=== PATIENT | female | born 2000 | race Caucasian/White ===

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

== ENCOUNTER 2019-05-25 14:26 | Emergency (ER) | payer BC ==
[2019-05-25 14:41] VITALS: BP 118/61; PULSE 78
--- NOTE | 2019-05-25 14:48 | EDM.PDOC ---
ED HPI GENERAL MEDICAL PROBLEM - General Chief Complaint: Upper Extremity Injury/Pain Stated Complaint: INJURED LT ARM Time Seen by Provider: 05/25/19 14:35 Source of Information: Reports: Patient History Limitations: Reports: No Limitations - History of Present Illness INITIAL COMMENTS - FREE TEXT/NARRATIVE: HISTORY AND PHYSICAL: History of present illness: Patient is a 19-year-old female who presents to the emergency room with complaints of left wrist pain. She states that she was doing some box jumps while she was working out and had fallen on an outstretched hand. She denies hitting her head or having any loss of consciousness. She denies any other extremity involvement. She is able to flex and extend and grasp although this does cause pain. Offers no systemic complaints. Review of systems: As per history of present illness and below otherwise all systems reviewed and negative. Past medical history: As per history of present illness and as reviewed below otherwise noncontributory. Surgical history: As per history of present illness and as reviewed below otherwise noncontributory. Social history: See social history for further information Family history: As per history of present illness and as reviewed below otherwise noncontributory. Physical exam: General: Well developed and well nourished 19 year old female. A&O x 3. Nontoxic appearing and in no acute distress. HEENT: Atraumatic, normocephalic, pupils equal and reactive bilaterally, negative for conjunctival pallor or scleral icterus, mucous membranes moist, trachea midline. No drooling or trismus noted. No meningeal signs. No hot potato voice noted. Lungs: Clear to auscultation, breath sounds equal bilaterally, chest nontender. Heart: S1S2, regular rate and rhythm without overt murmur Abdomen: Soft, nondistended, nontender. Negative for masses or hepatosplenomegaly. Negative for costovertebral tenderness. Skin: Intact, warm, dry. No lesions or rashes noted. Extremities: Strong radial pulse, cap refill less than 3 seconds. Pain to mid hand near the 1st and 2nd digit web space into forearm. No snuff box tenderness. Otherwise moves all extremities per self without difficulty or deficits. Neurovascular unremarkable. Neuro: Awake, alert, oriented. Cranial nerves II through XII unremarkable. Cerebellum unremarkable. Motor and sensory unremarkable throughout. Exam nonfocal. Notes: X-ray shows no acute findings. She declined Toradol IM. We will give her a thumb spica wrist splint. We discussed the need to follow-up with the orthopedic provider for reevaluation if she continues to have pain. Supportive care measures were reviewed and discussed. Voices understanding and is agreeable to plan of care. Denies any further questions or concerns at this time. Diagnostics: X-ray left wrist Therapeutics: Thumb spicca wrist splint Prescription: Diclofenac Impression: Left wrist injury Plan: 1. Rest, ice, elevate the affected extremity. Please wear the splint as directed. 2. Tylenol and/or Ibuprofen as needed for pain management. 3. Follow up with the Orthopedic provider as we discussed. Return to the ED as needed and as discussed. Definitive disposition and diagnosis as appropriate pending reevaluation and review of above. I did some diclofenac left wrist Pain Score (Numeric/FACES): 8 - Related Data Allergies Allergy/AdvReac Type Severity Reaction Status Date / Time No Known Allergies Allergy Verified 06/06/18 23:22 Home Meds: Home Meds Diclofenac Sodium [Voltaren] 75 mg PO BIDMEALS PRN #30 tab.cr 05/25/19 [Rx] Past Medical History - Past Health History Medical/Surgical History: Denies Medical/Surgical History HEENT History: Reports: None Cardiovascular History: Reports: None Respiratory History: Reports: Asthma Gastrointestinal History: Reports: None Genitourinary History: Reports: None ENGINEERING MATHEMATICIAN History: Reports: None Musculoskeletal History: Reports: None Neurological History: Reports: None Psychiatric History: Reports: None Endocrine/Metabolic History: Reports: None Hematologic History: Reports: None Oncologic (Cancer) History: Reports: None Dermatologic History: Reports: None - Infectious Disease History Infectious Disease History: Reports: Chicken Pox - Past Surgical History Head Surgeries/Procedures: Reports: None HEENT Surgical History: Reports: Adenoidectomy, Tonsillectomy Social & Family History - Family History Family Medical History: Noncontributory - Tobacco Use Smoking Status *Q: Never Smoker - Caffeine Use Caffeine Use: Reports: None - Recreational Drug Use Recreational Drug Use: No Review of Systems - Review of Systems Review Of Systems: Comprehensive ROS is negative, except as noted in HPI. ED EXAM, GENERAL - Physical Exam Exam: See Below (See dictation) Course - Vital Signs Last Recorded V/S: Last Vital Signs Temp 97.8 F 05/25/19 14:36 Pulse 78 05/25/19 14:36 Resp 14 05/25/19 14:36 BP 118/61 05/25/19 14:36 Pulse Ox 100 05/25/19 14:36 - Orders/Labs/Meds Orders: Active Orders 24 hr Category Date Time Status DME for Discharge [COMM] Stat Oth 05/25/19 15:54 Ordered Meds: Medications Discontinued Medications Generic Name Dose Route Start Last Admin Trade Name Freq PRN Reason Stop Dose Admin Tramadol HCl 50 mg 05/25/19 16:45 05/25/19 16:59 Ultram PO 05/25/19 16:46 50 mg ONETIME ONE Administration Departure - Departure Time of Disposition: 17:04 Disposition: Home, Self-Care 01 Clinical Impression: Left wrist injury Qualifiers: Encounter type: initial encounter Qualified Code(s): S69.92XA - Unspecified injury of left wrist, hand and finger(s), initial encounter - Discharge Information Prescriptions: Diclofenac Sodium [Voltaren] 75 mg PO BIDMEALS PRN #30 tab.cr PRN Reason: Pain Instructions: Wrist Splint, Adult, [id number] Referrals: Barrett Hardwick MD [Primary Care Provider] - Forms: ED Department Discharge Additional Instructions: The following information is given to patients seen in the emergency department who are being discharged to home. This information is to outline your options for follow-up care. We provide all patients seen in our emergency department with a follow-up referral. The need for follow-up, as well as the timing and circumstances, are variable depending upon the specifics of your emergency department visit. If you don't have a primary care physician on staff, we will provide you with a referral. We always advise you to contact your personal physician following an emergency department visit to inform them of the circumstance of the visit and for follow-up with them and/or the need for any referrals to a consulting specialist. The emergency department will also refer you to a specialist when appropriate. This referral assures that you have the opportunity for follow-up care with a specialist. All of these measure are taken in an effort to provide you with optimal care, which includes your follow-up. Under all circumstances we always encourage you to contact your private physician who remains a resource for coordinating your care. When calling for follow-up care, please make the office aware that this follow-up is from your recent emergency room visit. If for any reason you are refused follow-up, please contact the [facility] Emergency Department at and asked to speak to the emergency department charge nurse. [facility] [address] [place] [address] [facility] [address] [place] [id number] 1. Rest, ice, elevate the affected extremity. Please wear the splint as directed. 2. Tylenol and/or Ibuprofen as needed for pain management. 3. Follow up with the Orthopedic provider as we discussed. Return to the ED as needed and as discussed. Sepsis Event Note - Evaluation Sepsis Screening Result: No Definite Risk - Focused Exam Vital Signs: Vital Signs Temp Pulse Resp BP Pulse Ox 05/25/19 14:36 97.8 F 78 14 118/61 100 Date Exam was Performed: 05/25/19 Time Exam was Performed: 17:03 - My Orders Last 24 Hours: My Active Orders 05/25/19 15:54 DME for Discharge [COMM] Stat - Assessment/Plan Last 24 Hours: My Active Orders 05/25/19 15:54 DME for Discharge [COMM] Stat
[2019-05-25] MEDS ORDERED: traMADol 50 MG Tab PO ONE (16:45)
--- NOTE | 2019-05-25 17:01 | CR ---
Indication: Fall. Technique: Two views of the left forearm. Comparison: None Findings: No acute fracture or subluxation is identified. The joint spaces are well maintained. Impression: No acute fracture. Dictated by Barbara Bangura MD @ May 25 2019 4:59PM Signed by Dr. Barbara Bangura @ May 25 2019 5:00PM
--- NOTE | 2019-05-25 17:03 | CR ---
Indication: Fall. Technique: Three views of the left wrist. Comparison: None Findings: The joint spaces are well maintained. No acute fracture or subluxation is identified. Impression: No acute fracture. Dictated by Barbara Bangura MD @ May 25 2019 5:00PM Signed by Dr. Barbara Bangura @ May 25 2019 5:01PM
== END 2019-05-25 17:27 | disposition home or self-care (01) ==
LOC: MW.ED 14:26
DX: S69.92XA Unspecified injury of left wrist, hand and finger(s), initial encounter (principal); W19.XXXA Unspecified fall, initial encounter
CPT/HCPCS: 29125; 73090; 73110; 99283; A9270; 99282

== ENCOUNTER 2022-11-09 01:37 | Emergency (ER) | payer BC ==
[2022-11-09] MEDS ORDERED: Sodium Chloride 0.9% 2.5 ML Syringe FLUSH PRN (02:41)
[2022-11-09] MEDS ORDERED: Sodium Chloride 0.9% 10 ML Syringe FLUSH PRN (02:41)
[2022-11-09] MEDS ORDERED: Ondansetron 4 MG/2 ML SDV IVPUSH ONE (02:41)
[2022-11-09] MEDS ORDERED: Morphine 4 MG/ML Syringe IVPUSH ONE ×2 (02:41→04:05)
[2022-11-09 02:55] LABS: BASOPHILS PERCENT AUTO 0.2 % (0.0-1.5); EOSINOPHILS PERCENT AUTO 0.4 % (0.0-7.0); HEMATOCRIT 35.4 % (36.0-46.0); LYMPHOCYTES ABSOLUTE AUTO 2.1 K/uL (0.6-2.4); LYMPHOCYTES PERCENT AUTO 21.8 % (16.0-40.0); MEAN CORPUSCULAR HEMOGLOBIN 28.7 pg (27.0-32.0); MEAN CORPUSCULAR HGB CONC 33.9 g/dL (31.0-37.0); MEAN CORPUSCULAR VOLUME 84.7 fL (80.0-98.0); MONOCYTES ABSOLUTE AUTO 0.4 K/uL (0.0-0.8); MONOCYTES PERCENT AUTO 3.8 % (0.0-15.0); NEUTROPHILS ABSOLUTE AUTO 7.2 K/uL (1.4-5.7); NEUTROPHILS PERCENT AUTO 73.8 % (48.0-80.0); NRBC ABSOLUTE 0 K/uL; PLATELET COUNT,PLT 199 K/uL (150-400); RED BLOOD CELL COUNT 4.18 M/uL (4.30-5.90); WHITE BLOOD CELL COUNT,WBC 9.81 K/uL (4.0-11.0)
[2022-11-09 03:03] LABS: A/G RATIO 1.1 (0.9-1.6); ALBUMIN 3.3 g/dL (3.4-5.0); BILIRUBIN TOTAL 0.2 mg/dL (0.2-1.0); CALCIUM 8.2 mg/dL (8.5-10.1); CARBON DIOXIDE,CO2 23.6 mmol/L (21.0-32.0); CREATININE 0.7 mg/dL (0.6-1.0); EST CRCL DRUG DOSING (CG) 111.88 mL/min; POTASSIUM,K 3.8 mmol/L (3.5-5.1); PROTEIN TOTAL,TP 6.4 g/dL (6.4-8.2)
[2022-11-09] MEDS ORDERED: Sodium Chloride 0.9% 1,000 ML IV ONE (03:49)
[2022-11-09 03:55] LABS: BILIRUBIN,URINE NEGATIVE (NEGATIVE); COLOR,URINE YELLOW; GLUCOSE,URINE NEGATIVE (NEGATIVE); KETONES,URINE NEGATIVE (NEGATIVE); LEUKOCYTE ESTERASE,URINE NEGATIVE (NEGATIVE); NITRITE,URINE NEGATIVE (NEGATIVE); OCCULT BLOOD,URINE TRACE-INTACT (NEGATIVE); PH,URINE 6.5 (5.0-8.0); PROTEIN,URINE NEGATIVE (NEGATIVE); UROBILINOGEN,URINE 0.2 EU/dL (<2.0)
[2022-11-09 04:05] LABS: APPEARANCE,URINE SLT CLOUDY; BACTERIA,URINE 1+ (NEGATIVE); EPITHELIAL CELLS,URINE FEW (NONE-FEW); RBC,URINE 0-1 (0-2/HPF); WBC,URINE 0-2 (0-5/HPF)
[2022-11-09] MEDS ORDERED: cefTRIAXone 2 GM in Sodium Chloride 0.9% 50 ML IV ONE (04:14)
[2022-11-09 06:18] VITALS: BP 106/61; PULSE 75
== END 2022-11-09 06:18 | disposition home or self-care (01) ==
LOC: MW.ED 01:37
DX: O23.02 Infections of kidney in pregnancy, second trimester (principal); O99.512 Diseases of the respiratory system complicating pregnancy, second trimester; J45.909 Unspecified asthma, uncomplicated; Z3A.19 19 weeks gestation of pregnancy
CPT/HCPCS: 36415; 76705; 76857; 80053; 81001; 83690; 85025; 96365; 96375; 96376; 99284; J0696; J2270; J2405; J3490; J7030

== ENCOUNTER 2022-11-11 10:25 | Emergency (ER) | payer BC ==
[2022-11-11 11:01] LABS: APPEARANCE,URINE CLEAR; BILIRUBIN,URINE NEGATIVE (NEGATIVE); COLOR,URINE YELLOW; GLUCOSE,URINE NEGATIVE (NEGATIVE); KETONES,URINE NEGATIVE (NEGATIVE); LEUKOCYTE ESTERASE,URINE NEGATIVE (NEGATIVE); NITRITE,URINE NEGATIVE (NEGATIVE); OCCULT BLOOD,URINE NEGATIVE (NEGATIVE); PH,URINE 6.5 (5.0-8.0); PROTEIN,URINE NEGATIVE (NEGATIVE); UROBILINOGEN,URINE 0.2 EU/dL (<2.0)
[2022-11-11] MEDS ORDERED: Sodium Chloride 0.9% 1,000 ML IV ONE ×2 (11:16→15:59)
[2022-11-11] MEDS ORDERED: cefTRIAXone 1 GM in Sodium Chloride 0.9% 50 ML IV ONE (11:17)
[2022-11-11] MEDS ORDERED: Morphine 4 MG/ML Syringe IVPUSH ONE ×2 (11:17→14:10)
[2022-11-11 11:56] LABS: BASOPHILS PERCENT AUTO 0.2 % (0.0-1.5); EOSINOPHILS PERCENT AUTO 0.1 % (0.0-7.0); HEMATOCRIT 34.7 % (36.0-46.0); HEMOGLOBIN 11.8 g/dL (12.0-16.0); LYMPHOCYTES ABSOLUTE AUTO 1.4 K/uL (0.6-2.4); MEAN CORPUSCULAR HEMOGLOBIN 29.3 pg (27.0-32.0); MEAN CORPUSCULAR VOLUME 86.1 fL (80.0-98.0); MONOCYTES ABSOLUTE AUTO 0.3 K/uL (0.0-0.8); MONOCYTES PERCENT AUTO 3.3 % (0.0-15.0); NEUTROPHILS ABSOLUTE AUTO 8.3 K/uL (1.4-5.7); NEUTROPHILS PERCENT AUTO 82.4 % (48.0-80.0); NRBC ABSOLUTE 0 K/uL; PLATELET COUNT,PLT 166 K/uL (150-400); RED BLOOD CELL COUNT 4.03 M/uL (4.30-5.90); WHITE BLOOD CELL COUNT,WBC 10.07 K/uL (4.0-11.0)
[2022-11-11 12:18] LABS: CALCIUM 8.4 mg/dL (8.5-10.1); CARBON DIOXIDE,CO2 26.3 mmol/L (21.0-32.0); CREATININE 0.7 mg/dL (0.6-1.0); EST CRCL DRUG DOSING (CG) 112.47 mL/min; POTASSIUM,K 3.8 mmol/L (3.5-5.1)
[2022-11-11] MEDS ORDERED: Naloxone 0.4 MG/ML SDV IVPUSH PRN (14:10)
[2022-11-11] MEDS ORDERED: Acetaminophen/oxyCODONE 325-10 MG Tab PO ONE (15:59)
[2022-11-11 18:08] VITALS: BP 100/54; PULSE 80
== END 2022-11-11 18:04 | disposition home or self-care (01) ==
LOC: MW.ED 10:25
DX: O99.891 Other specified diseases and conditions complicating pregnancy (principal); R10.9 Unspecified abdominal pain; Z3A.20 20 weeks gestation of pregnancy
CPT/HCPCS: 36415; 80048; 81003; 85025; 87040; 96361; 96365; 96375; 96376; 99284; A9270; J0696; J2270; J3490; J7030

== ENCOUNTER 2023-04-01 10:19 | Inpatient (IN) | payer BC ==
[2023-04-01] MEDS ORDERED: Oxytocin 10 Units/1 ML SDV IM ONE (11:59)
[2023-04-01] MEDS ORDERED: Oxytocin 10 Units/1 ML SDV ONE (12:01)
[2023-04-01] MEDS ORDERED: Lidocaine 1% 20 ML MDV ONE (12:02)
[2023-04-01] MEDS ORDERED: Carboprost Tromethamine 250 MCG/1 mL Vial ONE (12:16)
[2023-04-01] MEDS ORDERED: Ibuprofen 800 MG Tab ONE (12:34)
[2023-04-01] MEDS ORDERED: Acetaminophen 500 MG Tab ONE (12:34)
[2023-04-01] MEDS ORDERED: Water For Irrigation,Sterile 1,000 ML Container IRR PRN (12:41)
[2023-04-01] MEDS ORDERED: Sodium Chloride 0.9% 20 ML SDV IV PRN (12:41)
[2023-04-01] MEDS ORDERED: Carboprost Tromethamine 250 MCG/1 mL Vial IM PRN (12:41)
[2023-04-01] MEDS ORDERED: Sodium Chloride 0.9% 2.5 ML Syringe FLUSH PRN (12:41)
[2023-04-01] MEDS ORDERED: Tranexamic Acid IN NACL,ISO-OS 1,000 MG in Premix Bag 1 BAG IV PRN ×2 (12:41)
[2023-04-01] MEDS ORDERED: Lidocaine 1% 50 ML MDV INJECT PRN (12:41)
[2023-04-01] MEDS ORDERED: Sodium Chloride 0.9% 10 ML Syringe FLUSH PRN (12:41)
[2023-04-01] MEDS ORDERED: Methylergonovine 0.2 MG/1 ML Amp IM PRN (12:41)
[2023-04-01] MEDS ORDERED: Ondansetron 4 MG Tab.DIS PO PRN (12:41)
[2023-04-01] MEDS ORDERED: Misoprostol 200 MCG Tab PO PRN (12:41)
[2023-04-01] MEDS ORDERED: Lactated Ringers 1,000 ML IV SCH (12:45)
[2023-04-01] MEDS ORDERED: Oxytocin/0.9 % Sodium Chloride 30 UNIT/500 ML BAG IV SCH (12:45)
[2023-04-01 13:21] LABS: HEMATOCRIT 37.4 % (37.0-47.0); HEMOGLOBIN 13.1 g/dL (12.0-16.0); MEAN CORPUSCULAR HEMOGLOBIN 29.1 pg (28.0-32.0); MEAN CORPUSCULAR VOLUME 83.1 fL (83.0-99.0); MEAN PLATELET VOLUME 9.8 fL (9.4-12.3); PLATELET COUNT,PLT 191 K/uL (150-400); WHITE BLOOD CELL COUNT,WBC 23.35 K/uL (3.9-11.3)
[2023-04-01] MEDS ORDERED: Lanolin 100% Cream 7 GM Tube TOP PRN (15:01)
[2023-04-01] MEDS ORDERED: Acetaminophen 500 MG Tab PO PRN ×2 (15:01)
[2023-04-01] MEDS ORDERED: Ibuprofen 400 MG Tab PO PRN (15:01)
[2023-04-01] MEDS ORDERED: Bisacodyl 10 MG Supp RECTAL PRN (15:01)
[2023-04-01] MEDS ORDERED: Benzocaine/Menthol 20%-0.5% Spray 78 GM Cannister TOP PRN (15:01)
[2023-04-01] MEDS ORDERED: Witch Hazel Medicated Pads 40/Jar TOP PRN (15:01)
[2023-04-01] MEDS: Docusate Sodium 100 MG Cap PO PRN (21:13)
[2023-04-01] MEDS: Ibuprofen 800 MG Tab PO PRN (21:13)
[2023-04-02 06:19] LABS: HEMATOCRIT 30.9 % (37.0-47.0); HEMOGLOBIN 10.8 g/dL (12.0-16.0)
[2023-04-02 09:21] VITALS: BP 108/60; PULSE 70
[2023-04-02] MEDS: Docusate Sodium 100 MG Cap PO PRN (10:01)
[2023-04-02] MEDS: Ibuprofen 800 MG Tab PO PRN (10:01)
== END 2023-04-02 13:10 | disposition home or self-care (01) | DRG 560 ==
LOC: MW.OBCHECK 10:19 → MW.OB 10:34 → MW.OBCHECK 12:00 → MW.OB 12:11 → OBSVTOIN 15:02 → MW.OB 16:37
PROVIDERS: ADMIT Obstetrics & Gynecology Obstetrics; ATTEND Obstetrics & Gynecology Obstetrics
PROC: 10E0XZZ Delivery of Products of Conception, External Approach (ICD-10-PCS; principal; 2023-04-01)
PROC: 0KQM0ZZ Repair Perineum Muscle, Open Approach (ICD-10-PCS; 2023-04-01)
DX: O48.0 Post-term pregnancy (principal); Z37.0 Single live birth; O70.1 Second degree perineal laceration during delivery; Z3A.40 40 weeks gestation of pregnancy; Z90.49 Acquired absence of other specified parts of digestive tract
CPT/HCPCS: 36415; 85014; 85018; 85027; 86592; 86593; 86780; 86850; 86900; 86901; A9270-GY; J2590; J3490

== ENCOUNTER 2024-03-27 05:22 | Emergency (ER) | payer BC ==
[2024-03-27 05:59] LABS: BASOPHILS ABSOLUTE AUTO 0.03 K/uL (0.00-0.20); BASOPHILS PERCENT AUTO 0.4 % (0.0-1.0); EOSINOPHILS ABSOLUTE AUTO 0.05 K/uL (0.00-0.45); EOSINOPHILS PERCENT AUTO 0.7 % (0.0-6.0); HEMATOCRIT 32.8 % (37.0-47.0); HEMOGLOBIN 11.3 g/dL (12.0-16.0); IMMATURE GRAN ABSOLUTE AUTO 0.04 K/uL (0.00-0.05); IMMATURE GRAN PERCENT AUTO 0.5 % (0.0-0.4); LYMPHOCYTES ABSOLUTE AUTO 2.33 K/uL (1.00-4.80); LYMPHOCYTES PERCENT AUTO 31.8 % (24.0-44.0); MEAN CORPUSCULAR HEMOGLOBIN 29.3 pg (28.0-32.0); MEAN CORPUSCULAR HGB CONC 34.5 g/dL (32.0-36.0); MEAN PLATELET VOLUME 9.2 fL (9.4-12.3); MONOCYTES ABSOLUTE AUTO 0.31 K/uL (0.00-0.80); MONOCYTES PERCENT AUTO 4.2 % (0.0-8.0); NEUTROPHILS ABSOLUTE AUTO 4.57 K/uL (1.80-7.70); NEUTROPHILS PERCENT AUTO 62.4 % (41.0-71.0); PLATELET COUNT,PLT 140 K/uL (150-400); RED BLOOD CELL COUNT 3.86 M/uL (4.10-5.30); WHITE BLOOD CELL COUNT,WBC 7.33 K/uL (3.9-11.3)
[2024-03-27 06:58] LABS: A/G RATIO 1.1 (0.9-1.6); ALBUMIN 3.2 g/dL (3.4-5.0); BILIRUBIN TOTAL 0.4 mg/dL (0.2-1.0); CALCIUM 8.7 mg/dL (8.5-10.1); CARBON DIOXIDE,CO2 25.5 mmol/L (21.0-32.0); CREATININE 0.8 mg/dL (0.6-1.0); EST CRCL DRUG DOSING (CG) 96.73 mL/min; POTASSIUM,K 3.5 mmol/L (3.5-5.1); PROTEIN TOTAL,TP 6.2 g/dL (6.4-8.2)
[2024-03-27 07:54] LABS: APPEARANCE,URINE CLOUDY; BILIRUBIN,URINE NEGATIVE (NEGATIVE); COLOR,URINE RED; GLUCOSE,URINE NEGATIVE (NEGATIVE); KETONES,URINE NEGATIVE (NEGATIVE); LEUKOCYTE ESTERASE,URINE TRACE (NEGATIVE); NITRITE,URINE POSITIVE (NEGATIVE); OCCULT BLOOD,URINE LARGE (NEGATIVE); PROTEIN,URINE >=300 mg/dL (NEGATIVE); UROBILINOGEN,URINE 0.2 EU/dL (<2.0)
[2024-03-27 08:12] LABS: BACTERIA,URINE FEW (NEGATIVE); EPITHELIAL CELLS,URINE FEW (NONE-FEW); RBC,URINE TOO NUMEROUS TO CT (0-2/HPF)
[2024-03-27 10:56] VITALS: BP 105/54; PULSE 82
== END 2024-03-27 10:55 | disposition home or self-care (01) ==
LOC: MW.ED 05:22
DX: O20.0 Threatened abortion (principal); Z3A.19 19 weeks gestation of pregnancy
CPT/HCPCS: 36415; 76815; 76815-26; 80053; 81001; 84702; 85025; 86900; 86901; 99283; 99284